=== PATIENT | female | born 1975 | race Caucasian/White ===

== ENCOUNTER 2019-04-26 09:38 | Inpatient (IN) | payer OTHER ==
[~2019-04-26] VITALS: Ht 160 cm; Wt 88.9 kg
[2019-04-26] MEDS ORDERED: ONDANSETRON HCL INJ 2MG/ML 2ML 2 MG/ML VIAL IV STA (09:52)
[2019-04-26] MEDS ORDERED: PANTOPRAZOLE 40 MG 10ML VIAL IV STA (09:52)
[2019-04-26] MEDS ORDERED: KETOROLAC TROMETHAMINE 30 MG/ML VIAL IV STA ×2 (09:52→18:12)
[2019-04-26] MEDS ORDERED: SODIUM CHLORIDE 0.9% 1000ML 1,000 ML IV STA (09:52)
[2019-04-26 10:07] LABS: BASOPHILS % 0.4 % (0.0-1.0); EOSINOPHILS % 0.5 % (0.0-6.0); HEMATOCRIT 39.4 % (34.2-44.1); HEMOGLOBIN 13.2 g/dL (12.0-16.0); LYMPHOCYTES # (AUTO) 1.6 (1.0-3.2); MEAN CORPUSCULAR HEMOGLOBIN 28.9 pg (28-32); MEAN CORPUSCULAR HGB CONC 33.5 g/dL (31-35); MEAN CORPUSCULAR VOLUME 86.2 fL (81-99); MONOCYTES # (AUTO) 0.6 (0.2-0.8); MONOCYTES % 7.9 % (4.4-11.3); NEUTROPHILS % 67.8 % (38.7-80.0); PLATELET COUNT 231 x10e3/uL (140-360); RED BLOOD COUNT 4.57 x10e6/uL (3.6-5.1); RED CELL DISTRIBUTION WIDTH 12.1 % (11.7-14.4)
[2019-04-26 10:08] LABS: BILIRUBIN,URINE NEGATIVE (NEGATIVE); CLARITY,URINE SL CLOUDY (CLEAR); COLOR,URINE YELLOW (YELLOW); KETONES,URINE TRACE (NEGATIVE); LEUKOCYTE ESTERASE ,URINE NEGATIVE (NEGATIVE); NITRITE,URINE NEGATIVE (NEGATIVE); PROTEIN,URINE DIPSTICK 2+ (NEGATIVE); URINE UROBILINOGEN 0.2 mg/dL (0.2 - 1)
[2019-04-26 10:14] LABS: INR 0.88; PROTHROMBIN TIME 12.4 seconds (11.9-14.5)
[2019-04-26 10:15] LABS: PARTIAL THROMBOPLASTIN TIME 28.2 seconds (23.8-35.5)
[2019-04-26 10:16] LABS: BACTERIA,URINE MANY /HPF; EPITHELIAL CELLS,URINE MODERATE /LPF; WBC,URINE (MAN) 21-50 /HPF (0-5)
[2019-04-26 10:17] LABS: AMORPHOUS SEDIMENT,URINE MODERATE (FEW)
[2019-04-26 10:21] LABS: ALANINE AMINOTRANSFERASE 21 IU/L (0-55); ALBUMIN 4.4 g/dL (3.5-5.0); ALBUMIN/GLOBULIN RATIO 1.4 (0.8-2.0); ALKALINE PHOSPHATASE 70 IU/L (40-150); AMYLASE 36 U/L (25-125); ANION GAP 13.2 mmol/L (8-16); BLOOD UREA NITROGEN 17 mg/dL (7-26); BUN/CREATININE RATIO 20 (6-25); CALCIUM 9.6 mg/dL (8.4-10.2); CARBON DIOXIDE 29 mmol/L (22-29); CHLORIDE 97 mmol/L (98-107); CREATININE, SERUM 0.85 mg/dL (0.57-1.11); EST GLOMERULAR FILTRATION RATE > 60 ML/MIN (60-); GLUCOSE 121 mg/dL (74-118); LIPASE 36 U/L (8-78); POTASSIUM 3.2 mmol/L (3.5-5.1); SODIUM 136 mmol/L (136-145)
[2019-04-26] MEDS ORDERED: CEFTRIAXONE SOD 1 GM/NS 50 ML 50 ML IV ONE (10:45)
--- NOTE | 2019-04-26 10:48 | Diagnostic Imaging Report ---
EXAM: CT Abdomen and Pelvis WITHOUT intravenous contrast INDICATION: Flank pain COMPARISON: None. TECHNIQUE: Abdomen and pelvis were scanned utilizing a multidetector helical scanner from the lung base to the pubic symphysis without administration of IV contrast. Coronal and sagittal reformations were obtained. IV CONTRAST: None ORAL CONTRAST: None COMPLICATIONS: None RADIATION DOSE: Total DLP: 731.8 mGy*cm Dose modulation, iterative reconstruction, and/or weight based adjustment of the mA/kV was utilized to reduce the radiation dose to as low as reasonably achievable. FINDINGS: LOWER THORAX: Normal. HEPATOBILIARY: No focal liver lesions. Status post cholecystectomy. SPLEEN: No splenomegaly. PANCREAS: No focal masses or ductal dilatation. ADRENALS: No adrenal nodules. KIDNEYS/URETERS: 4 mm proximal right ureteral calculus with mild resulting right hydroureteronephrosis. No other calculi. No left hydronephrosis. PELVIC ORGANS/BLADDER: Decompressed bladder. PERITONEUM / RETROPERITONEUM: No free air or fluid. LYMPH NODES: No lymphadenopathy. VESSELS: GI TRACT: Gastric lap band device in place. Mild colonic diverticulosis. No CT evidence of diverticulitis. No abnormal bowel wall thickening. No bowel obstruction. Normal appendix. BONES AND SOFT TISSUES: Unremarkable. IMPRESSION: 4 mm proximal right ureteral calculus with mild resulting right hydroureteronephrosis. No left hydronephrosis. No additional calculi. Signed by: Gerhard Osorio MD on 04/26/2019 10:44 AM
--- NOTE | 2019-04-26 10:58 | Diagnostic Imaging Report ---
EXAMINATION: CHEST SINGLE (PORTABLE) INDICATION: Abdominal pain COMPARISON: None FINDINGS: LINES/TUBES:None LUNGS:The lungs are well-inflated. No focal consolidation or pulmonary edema. PLEURA:No pleural effusion or pneumothorax. MEDIASTINUM:The cardiomediastinal silhouette appears normal in size and shape. Small hiatal hernia. BONES/SOFT TISSUES:No acute osseous injury. ABDOMEN:No free air under the diaphragm. IMPRESSION: No focal pneumonia or pulmonary edema. Small hiatal hernia. Signed by: Gerhard Osorio MD on 04/26/2019 10:55 AM
[2019-04-26 11:41] LABS: BILIRUBIN,URINE NEGATIVE (NEGATIVE); CLARITY,URINE SL CLOUDY (CLEAR); COLOR,URINE YELLOW (YELLOW); KETONES,URINE NEGATIVE (NEGATIVE); LEUKOCYTE ESTERASE ,URINE NEGATIVE (NEGATIVE); NITRITE,URINE NEGATIVE (NEGATIVE); PROTEIN,URINE DIPSTICK 1+ (NEGATIVE); URINE UROBILINOGEN 0.2 mg/dL (0.2 - 1)
[2019-04-26] MEDS ORDERED: POTASSIUM CHLORIDE 20 MEQ TAB CR PO STA (11:50)
[2019-04-26 11:54] LABS: AMORPHOUS SEDIMENT,URINE FEW (FEW); BACTERIA,URINE MANY /HPF; EPITHELIAL CELLS,URINE MODERATE /LPF; RBC,URINE >50 /HPF (0-5)
[2019-04-26] MEDS ORDERED: KCL 20MEQ/.9 SOD CHL 1,000 ML IV ONE (12:00)
[2019-04-26] MEDS ORDERED: MORPHINE SULFATE 2 MG/ML SYR 1ML IV PRN (12:15)
[2019-04-26] MEDS ORDERED: TAMSULOSIN HCL 0.4 MG CAP PO ONE (12:15)
[2019-04-26] MEDS ORDERED: MORPHINE SULFATE INJ 4 MG/ML INJ 1ML IV PRN (12:30)
--- OUTSIDE RECORDS SUMMARY | 2019-04-26 12:36 | XMS REPORT ---
Author Author [facility] Address Unknown Phone Unavailable Care Team Providers Care Cargo Service Agent Name Role Phone Gloria SLAUGHTER Unavailable Unavailable Problems This patient has no known problems. Allergies, Adverse Reactions, Alerts This patient has no known allergies or adverse reactions. Medications This patient has no known medications. Results Test Description Test Time Test Comments Text Results Atomic Results Result Comments CHEST SINGLE (PORTABLE) 2019-04-26 10:54:00 [facility] [address] [place] [address] Patient Name: BENITEZ MARIO MR #: [id number] : 1975 Age/Sex: 43/F Req #: [id number] [facility] Physician: Ordered by: MERCY SLAUGHTER MD Report #: [id number] Location: ER Room/Bed: Procedure: [id number] DX/CHEST SINGLE (PORTABLE) Exam Date: 04/26/19 Exam Time: 1030 REPORT STATUS: Signed EXAMINATION: CHEST SINGLE (PORTABLE) INDIC ATION: Abdominal pain COMPARISON: None FINDINGS: LINES/TUBES:None LUNGS:The lungs are well-inflated. No focal consolidation or pulmonary edema. PLEURA:No pleural effusion or pneumothorax. MEDIASTINUM:The cardiomediastinal silhouette appears normal in size and shape. Small hiatal hernia. BONES/SOFT TISSUES:No acute osseous injury. ABDOMEN:No free air under the diaphragm. IMPRESSION: No focal pneumonia or pulmonary edema. Small hiatal hernia. Signed by: Nikko Ferreira MD on 04/26/2019 10:55 AM Dictated By: NIKKO FERREIRA MD 105 Transcribed By: NAUN on 04/26/19 105 COPY TO: MERCY SLAUGHTER MD CT ABDOMEN/PELVIS WO 2019-04-26 10:38:00 [place] [address] Patient Name: BENITEZ MARIO MR #: [id number] : 1975 Age/Sex: 43/F Req #: [id number] Adm Physician: Ordered by: MERCY SLAUGHTER MD Report #: [id number] Location: ER Room/Bed: Procedure: [id number] CT/CT ABDOMEN/PELVIS WO Exam Date: 04/26/19 Exam Time: 1011 REPORT STATUS: Signed EXAM: CT Abdomen and Pelvis WITHOUT intravenous contras t INDICATION: Flank pain COMPARISON: None. TECHNIQUE: Abdomen and pelvis were scanned utilizing a multidetector helical scanner from the lung base to the pubic symphysis without administration of IV contrast. Coronal and sagittal reformations were obtained. IV CONTRAST: None ORAL CONTRAST: None COMPLICATIONS: None RADIATION DOSE: Total DLP: 731.8 mGy*cm Dose modulation, iterative reconstruction, and/or weight based adjustment of the mA/kV was utilized to reduce the radiation dose to as low as reasonably achievable. FINDINGS: LOWER THORAX: Normal. HEPATOBILIARY: No focal liver lesions. Status post cholecystectomy. SPLEEN: No splenomegaly. PANCREAS: No focal masses or ductal dilatation. ADRENALS: No adrenal nodules. KIDNEYS/URETERS: 4 mm proximal right ureteral calculus with mild resulting right hydroureteronephrosis. No other calculi. No left hydronephrosis. PELVIC ORGANS/BLADDER: Decompressed bladder. PERITONEUM / RETROPERITONEUM: No free air or fluid. LYMPH NODES: No lymphadenopathy. VESSELS: GI TRACT: Gastric lap band device in place. Mild colonic diverticulosis. No CT evidence of diverticulitis. No abnormal bowel wall thickening. No bowel obstruction. Normal appendix. BONES AND SOFT TISSUES: Unremarkable. IMPRESSION: 4 mm proximal right ureteral calculus with mild resulting right hydroureteronephrosis. No left hydronephrosis. No additional calculi. Signed by: Nikko Ferreira MD on 04/26/2019 10:44 AM Dictated By: NIKKO FERREIRA MD 1044 Transcribed By: NAUN on 04/26/19 1044 COPY TO: MERCY SLAUGHTER MD SCR MAMM BILATERAL DANIEL CAD DIGITAL 2019-01-25 11:31:41 - SCR MAMM BILATERAL DANIEL CAD DIGITALBILATERAL DIGITAL SCREENING MAMMOGRAM 3D/2D WITH CAD: 01/25/2019CLINICAL: Asymptomatic. Digital breast tomosynthesis was performed in addition to routine CC and MLO views. Current mammographic images were evaluated by either a American Board of Addiction Medicine (ABAM) M-Vu or a Signature ImageChecker CAD (computer aided detection system). No prior exams were available for comparison. There are sca ttered fibroglandular tissues in both breasts. No suspicious mass, architectural distortion, malignant type calcification, or lymph node abnormality detected. IMPRESSION: NEGATIVEThere is no mammographic evidence of malignancy. Resume annual screening mammography in one year. Cliff Vasquez M.D. ss/penrad:01/25/2019 11:31:41 Commercial Painter: Ashley HAWK, [facility]-FWletter sent: BIRADS 1-2 Normal Mammogram BI-RADS: 1 Negative
--- NOTE | 2019-04-26 12:39 | NUR ---
DR ALEX AT PT BEDSIDE
[2019-04-26] MEDS ORDERED: BYSTOLIC10 MG PO (13:08)
[2019-04-26] MEDS ORDERED: TRIAMTERENE-HCTZ1 EA PO (13:08)
--- NOTE | 2019-04-26 14:03 | NUR ---
PT PLACED IN HOSP BED
[2019-04-26] MEDS: ONDANSETRON HCL INJ 2MG/ML 2ML 2 MG/ML VIAL IV PRN ×2 (14:04→21:38)
[2019-04-26] MEDS ORDERED: HYDROMORPHONE 1MG/1ML INJ IV PRN (14:45)
--- NOTE | 2019-04-26 17:36 | NUR ---
Recvd patient from ER. AAOx3, assisted her to bed, denies any chest pain or SOB, Not in any distress, mild tenderness on abdomen, resp even and unlabored, call light in reach
[2019-04-26 17:42] VITALS: BP 130/80
[2019-04-26 18:21] VITALS: BP 138/90
--- NOTE | 2019-04-26 19:00 | NUR ---
RECEIVED REPORT FROM DAY NURSE. PATIENT IS RESTING COMFORTABLY IN BED. BED IS IN LOWEST POSITION AND CALL ANGEL IS WITHIN REACH. WILL CONTINUE TO MONITOR PATIENT.
[2019-04-26 20:00] VITALS: BP 133/81
[2019-04-26] MEDS: SODIUM CHLORIDE 0.9% 1000ML 1,000 ML IV SCH (21:04)
[2019-04-26] MEDS: TAMSULOSIN HCL 0.4 MG CAP PO SCH (21:11)
[2019-04-26] MEDS: NEBIVOLOL 10 MG TAB PO SCH (21:11)
--- NOTE | 2019-04-26 21:19 | Consultation ---
DATE OF CONSULTATION: 04/26/2019 Urologic consultation Consultation is called by Dr. Ben Santiago in the emergency room. CHIEF COMPLAINT/REASON FOR CONSULTATION: Right ureteral calculus. 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 She denied fevers or chills. Denied hematuria. Denied dysuria. PAST MEDICAL HISTORY: Denied. MEDICATIONS: Please see MAR. ALLERGIES: NKDA. SOCIAL HISTORY: Denied smoking or drinking. FAMILY HISTORY: Denied urologic stones or malignancies. REVIEW OF SYSTEMS: Noncontributory other than problems mentioned above for 12 organ systems. PHYSICAL EXAMINATION: GENERAL: Middle-aged female, in no acute distress. VITAL SIGNS: Currently, temperature 98, pulse 70, respirations 16, blood pressure 161/96. HEENT: Sclerae are anicteric. NECK: Supple. BACK: Right-sided costovertebral angle tenderness. ABDOMEN: Soft, nontender, and nondistended. No palpable mass. No palpable hernias. No palpable lymphadenopathy. : Normal female external genitalia. EXTREMITIES: No edema. Moves all four extremities. PSYCH: Alert and mood appropriate. SKIN: Intact. Normal color. PERTINENT LABORATORY DATA: CT scan revealing right 4 mm proximal ureteral calculus with hydronephrosis. Hemoglobin 13, hematocrit 39, platelet count 231,000, and white cell count 7300. Sodium 136, potassium 3.2, chloride 97, bicarb 29, BUN 17, creatinine 0.5, and glucose 121. Urinalysis greater than 50 reds and 11-20 whites. IMPRESSION: 1. Right ureteral calculus. 2. Right hydronephrosis. 3. Right renal colic. 4. Microscopic hematuria. 5. Hypertension. 6. Hypokalemia. PLAN: We would employ a brief trial of passage of medical expulsive therapy. Should this fail, we will discuss lithotripsy versus ureteroscopy in stepwise per the patient. Thank you for allowing me to participate in the care of your patient. We will be happy to follow along with you. MD OLGA Kauffman/MODL /[id number] cc: MD Roseanne Kauffman MD Laird A Sweet, MD
[2019-04-26] MEDS: HYDROMORPHONE 1MG/1ML INJ IV PRN (21:38)
[2019-04-26] MEDS: CEFTRIAXONE SOD 1 GM/NS 50 ML 50 ML IV SCH (22:58)
[2019-04-27] VITALS (7 sets, daily range): BP systolic 94–150; BP diastolic 51–71
[2019-04-27] MEDS: KETOROLAC TROMETHAMINE 30 MG/ML VIAL IV PRN ×4 (00:58→18:32)
--- NOTE | 2019-04-27 01:45 | History and Physical ---
CHIEF COMPLAINT: Right kidney stone associated with hydroureteronephrosis. HISTORY: The patient is a pleasant 43-year-old female with no history of previous stone, came in with right flank severe pain. CT stone protocol showed 4 mm proximal right ureteral calculus with mild resulting in right hydroureteronephrosis. The patient is in severe pain. She did receive some pain medication. The patient is otherwise stable at this time. Urinalysis shows significant urinary tract infection with many bacteria. PAST MEDICAL HISTORY: Hypertension. PAST SURGICAL HISTORY: Hysterectomy, cholecystectomy, and hiatal hernia repair. SOCIAL HISTORY: The patient does not smoke or use alcohol. No recreational drug use. The patient works here at [employer]. ALLERGIES: NO KNOWN ALLERGIES. HOME MEDICATIONS: List is reviewed. REVIEW OF SYSTEMS: As mentioned above. PHYSICAL EXAMINATION: VITAL SIGNS: Temperature is 98, blood pressure 161/96, pulse rate is 70, respirations 18. GENERAL: The patient is not in acute distress. She is awake. HEENT: Normocephalic, atraumatic. Sclera anicteric. NECK: Supple grossly. PULMONARY: Diminished breath sounds. CARDIOVASCULAR: S1 and S2. Regular rate and rhythm. ABDOMEN: Soft. Right flank tenderness. EXTREMITIES: No cyanosis or edema. NEUROLOGIC: No gross focal deficit. IMAGING: Showed a 4 mm right obstructed kidney stone. IMPRESSION: 1. Right 4 mm obstructive kidney stone associated with hydroureteronephrosis. 2. Urinary tract infection. 3. Intractable pain. PLAN: Continue with IV fluids. Replace PPI. Toradol and hydromorphone p.r.n. We will monitor the patient closely. The patient is stable. We will continue with antibiotics. Obtain lab work in the morning. The patient is seen by Dr. Bj Perez for possible stone management and stent placement if not passing the stone. MD DESI Mendiola/ACE /[id number]
[2019-04-27 05:44] LABS: BASOPHILS % 0.3 % (0.0-1.0); EOSINOPHILS # (AUTO) 0.1 (0.0-0.4); EOSINOPHILS % 1.4 % (0.0-6.0); HEMATOCRIT 35.4 % (34.2-44.1); HEMOGLOBIN 11.5 g/dL (12.0-16.0); LYMPHOCYTES # (AUTO) 2.1 (1.0-3.2); LYMPHOCYTES % 32.7 % (18.0-39.1); MEAN CORPUSCULAR HGB CONC 32.5 g/dL (31-35); MEAN CORPUSCULAR VOLUME 89.4 fL (81-99); MONOCYTES # (AUTO) 0.5 (0.2-0.8); MONOCYTES % 8.1 % (4.4-11.3); NEUTROPHILS # (AUTO) 3.6 (2.1-6.9); NEUTROPHILS % 57.2 % (38.7-80.0); PLATELET COUNT 176 x10e3/uL (140-360); RED BLOOD COUNT 3.96 x10e6/uL (3.6-5.1); RED CELL DISTRIBUTION WIDTH 12.2 % (11.7-14.4)
[2019-04-27] MEDS: ONDANSETRON HCL INJ 2MG/ML 2ML 2 MG/ML VIAL IV PRN ×3 (05:49→21:00)
[2019-04-27] MEDS: SODIUM CHLORIDE 0.9% 1000ML 1,000 ML IV SCH ×3 (05:49→21:07)
[2019-04-27] MEDS: HYDROMORPHONE 1MG/1ML INJ IV PRN ×4 (05:49→21:00)
[2019-04-27 06:09] LABS: ALANINE AMINOTRANSFERASE 18 IU/L (0-55); ALBUMIN 3.6 g/dL (3.5-5.0); ALBUMIN/GLOBULIN RATIO 1.3 (0.8-2.0); ALKALINE PHOSPHATASE 57 IU/L (40-150); ANION GAP 11.4 mmol/L (8-16); BLOOD UREA NITROGEN 15 mg/dL (7-26); BUN/CREATININE RATIO 20 (6-25); CALCIUM 8.5 mg/dL (8.4-10.2); CARBON DIOXIDE 25 mmol/L (22-29); CHLORIDE 106 mmol/L (98-107); CREATININE, SERUM 0.75 mg/dL (0.57-1.11); EST GLOMERULAR FILTRATION RATE > 60 ML/MIN (60-); GLUCOSE 124 mg/dL (74-118); POTASSIUM 3.4 mmol/L (3.5-5.1); SODIUM 139 mmol/L (136-145)
--- NOTE | 2019-04-27 06:41 | NUR ---
report given to day nurse. patient is resting comfortably in bed. bed is in lowest position and call sage is within reach.
[2019-04-27] MEDS: PANTOPRAZOLE 40 MG 10ML VIAL IV SCH (08:54)
[2019-04-27] MEDS ORDERED: NEBIVOLOL 10 MG TAB PO SCH (09:00)
[2019-04-27] MEDS: CEFTRIAXONE SOD 1 GM/NS 50 ML 50 ML IV SCH ×2 (10:30→22:47)
--- NOTE | 2019-04-27 15:01 | Diagnostic Imaging Report ---
Exam: KUB - 2 views Clinical History: Renal calculi Comparison: CT abdomen and pelvis of 04/26/2019 Findings: 5 mm calcific density to the right of the L4 vertebral body corresponds with the right ureteral calculus seen on the CT of 04/26/2019. No other radiographically apparent urinary calculi. Nonobstructive bowel gas pattern. No free air. Flat band partially visualized. Status post cholecystectomy. The osseous structures appear unremarkable. Impression: 5 mm calcific density to the right of the L4 vertebral body corresponds with the right ureteral calculus seen on the CT of 04/26/2019. Signed by: Gerhard Osorio MD on 04/27/2019 2:58 PM
--- NOTE | 2019-04-27 15:05 | NUR ---
Visit made by the Spiritual Care Department Pastoral Visitor, Kimmie Nunez. PV provided pastoral presence, prayer, hospitality, and supportive listening. Pastoral Visitor informed pt/family of the scope of Forest Ranger Technician Services and availability. JOE MARTIN Socially Responsible Investment Adviser Spiritual Care Department O: [phone] Pager: [phone] ([phone] number calling from)
--- NOTE | 2019-04-27 19:00 | NUR ---
received report from day nurse. patient is resting comfortably in bed. bed is in lowest position and call sage is within reach. will continue to monitor patient.
[2019-04-27] MEDS: TAMSULOSIN HCL 0.4 MG CAP PO SCH (21:07)
[2019-04-27] MEDS: NEBIVOLOL 10 MG TAB PO SCH (21:07)
[2019-04-28] VITALS (8 sets, daily range): BP systolic 115–141; BP diastolic 20–66
[2019-04-28] MEDS: KETOROLAC TROMETHAMINE 30 MG/ML VIAL IV PRN ×3 (00:39→17:31)
[2019-04-28] MEDS: HYDROMORPHONE 1MG/1ML INJ IV PRN ×2 (05:51→23:22)
[2019-04-28] MEDS: ONDANSETRON HCL INJ 2MG/ML 2ML 2 MG/ML VIAL IV PRN ×2 (05:51→23:22)
--- NOTE | 2019-04-28 07:10 | NUR ---
RCD PT AT BED PT IS ALERT AND ORIENTED PT RESTING ON BED NO SIGNS OF ANY DISTRESS NOTED IV PATENT BED LOW AND LOCKED CALL LIGHT IN REACH
[2019-04-28] MEDS: PANTOPRAZOLE 40 MG 10ML VIAL IV SCH (09:00)
[2019-04-28] MEDS: SODIUM CHLORIDE 0.9% 1000ML 1,000 ML IV SCH ×3 (09:07→20:37)
[2019-04-28] MEDS: CEFTRIAXONE SOD 1 GM/NS 50 ML 50 ML IV SCH ×2 (11:00→23:22)
[2019-04-28] MEDS ORDERED: IOPAMIDOL 610MG/1ML 300 MG/ML VIAL IV ONE (11:47)
[2019-04-28] MEDS ORDERED: FENTANYL CITRATE/PF 100MCG/2 ML INJ ONE ×2 (15:17→15:35)
[2019-04-28] MEDS ORDERED: MIDAZOLAM HCL 2 MG/2 ML VIAL ONE (15:17)
[2019-04-28] MEDS ORDERED: METOCLOPRAMIDE HCL 10 MG/2ML VIAL ONE (15:36)
[2019-04-28] MEDS ORDERED: ONDANSETRON HCL INJ 2MG/ML 2ML 2 MG/ML VIAL ONE (15:36)
--- NOTE | 2019-04-28 16:05 | NUR ---
PATIENT BACK AFTER PROCEDURE PT IS ALERT AND ORIENTED VITALS CHECKED PT RESTING ON BED NO SIGNS OF DISTRESS NOTED BED LOW AND LOCKED CALL LIGHT IN REACH
--- NOTE | 2019-04-28 17:00 | NUR ---
PT VOIDED AFTER SURGERY
--- NOTE | 2019-04-28 19:09 | NUR ---
PT RESTING ON BED BED SIDE REPORT GIVEN TO ONCOMING NURSE
--- NOTE | 2019-04-28 19:09 | NUR ---
PT RESTING ON BED BED SIDE REPORT GIVEN TO ONCOMING NURSE
[2019-04-28] MEDS: NEBIVOLOL 10 MG TAB PO SCH (20:37)
[2019-04-28] MEDS: TAMSULOSIN HCL 0.4 MG CAP PO SCH (20:37)
[2019-04-29] VITALS (9 sets, daily range): BP systolic 120–161; BP diastolic 62–83
--- NOTE | 2019-04-29 00:04 | Operative Report ---
DATE OF PROCEDURE: 04/28/2019 SURGEON: Bj Perez MD PREOPERATIVE DIAGNOSIS: Right ureteral calculi. POSTOPERATIVE DIAGNOSIS: Right ureteral calculi. PROCEDURES: 1. Staged right-sided shock wave lithotripsy. 2. Supervision of fluoroscopy. ANESTHESIA: General. ESTIMATED BLOOD LOSS: Minimal. COMPLICATIONS: None. INDICATIONS: Ms. Jaimes is a very pleasant 43-year-old female with acute onset of sharp severe right-sided flank pain, who was found to have a 5 mm right mid ureteral calculus. She and I had a long discussion about alternatives, risks, and benefits of doing nothing, shock wave lithotripsy, ureteroscopy, percutaneous surgery or open surgery, and recommendation for stent. She voiced explicit understanding of this. She elected to proceed with shock wave lithotripsy. She declined stent placement. She voiced understanding options of the alternatives, risks, and benefits and elected to proceed. PROCEDURE IN DETAIL: After informed consent was obtained, the patient was taken to operative suite, placed supine on the operating table, and underwent general anesthesia by Anesthesia service. The stone was localized in the X, Y, and Z planes. Treatment was performed per treatment report. The patient tolerated the procedure well and was transported to the recovery room in excellent condition. Supervision of fluoroscopy: I was present for the entire procedure and supervised fluoroscopy. There was no radiologist present. Dosage per treatment report. Bj Perez MD ES/MODL /[id number]
[2019-04-29] MEDS: SODIUM CHLORIDE 0.9% 1000ML 1,000 ML IV SCH ×2 (04:13→09:30)
[2019-04-29] MEDS: ONDANSETRON HCL INJ 2MG/ML 2ML 2 MG/ML VIAL IV PRN (04:13)
[2019-04-29] MEDS: HYDROMORPHONE 1MG/1ML INJ IV PRN ×2 (04:13→11:45)
--- NOTE | 2019-04-29 07:05 | NUR ---
RCD PT AT BED PT IS ALERT AND ORIENTED PT RESTING ON BED PT C/O PAIN ON RIGHT FLANK 11/22 IV PATENT BED LOW AND LOCKED CALL LIGHT IN REACH
[2019-04-29] MEDS: KETOROLAC TROMETHAMINE 30 MG/ML VIAL IV PRN (08:56)
[2019-04-29] MEDS: PANTOPRAZOLE 40 MG 10ML VIAL IV SCH (09:00)
--- NOTE | 2019-04-29 10:18 | Diagnostic Imaging Report ---
Abdomen, 1 view. History: Ureteral stone. Comparison: 04/27/2019. Findings: 5 mm calcific density is again seen close to the right L5 transverse processes. Air is scattered throughout nondilated small and large bowel. There are no masses. The osseous structures are intact. Cholecystectomy clips and gastric lap band are again noted. IMPRESSION: Small right ureteral stone slightly more inferior located. Signed by: Byron Lawson on 04/29/2019 10:15 AM
[2019-04-29 10:42] LABS: BASOPHILS % 0.2 % (0.0-1.0); EOSINOPHILS % 0.5 % (0.0-6.0); HEMATOCRIT 34.5 % (34.2-44.1); HEMOGLOBIN 11.4 g/dL (12.0-16.0); LYMPHOCYTES % 23.3 % (18.0-39.1); MEAN CORPUSCULAR HEMOGLOBIN 29.2 pg (28-32); MEAN CORPUSCULAR VOLUME 88.2 fL (81-99); MONOCYTES # (AUTO) 0.7 (0.2-0.8); MONOCYTES % 7.5 % (4.4-11.3); NEUTROPHILS # (AUTO) 5.9 (2.1-6.9); NEUTROPHILS % 68.2 % (38.7-80.0); PLATELET COUNT 175 x10e3/uL (140-360); RED BLOOD COUNT 3.91 x10e6/uL (3.6-5.1)
[2019-04-29 10:59] LABS: ANION GAP 12.3 mmol/L (8-16); BLOOD UREA NITROGEN 10 mg/dL (7-26); BUN/CREATININE RATIO 11 (6-25); CALCIUM 8.8 mg/dL (8.4-10.2); CARBON DIOXIDE 28 mmol/L (22-29); CHLORIDE 100 mmol/L (98-107); CREATININE, SERUM 0.88 mg/dL (0.57-1.11); EST GLOMERULAR FILTRATION RATE > 60 ML/MIN (60-); GLUCOSE 108 mg/dL (74-118); POTASSIUM 3.3 mmol/L (3.5-5.1); SODIUM 137 mmol/L (136-145)
[2019-04-29] MEDS: CEFTRIAXONE SOD 1 GM/NS 50 ML 50 ML IV SCH ×2 (11:00→23:00)
--- NOTE | 2019-04-29 11:25 | NUR ---
PAGED DR HENSON AND NOTIFIED THE KUB REPORT HE SAID TELL THE PT IF THE STONE IS COMING DOWN TODAY PT NEED ANOTHER STENT PLACEMENT ON TOMORROW KEEP THE PT NPO AFTER MIDNIGHT ,NOTIFIED THE PT
[2019-04-29] MEDS ORDERED: DEXAMETHASONE SOD PHOS INJ 4 MG/ML VIAL ONE (14:31)
[2019-04-29] MEDS ORDERED: PROPOFOL IV EMULSION 10 MG/ML 20 ML VIAL ONE (14:31)
[2019-04-29] MEDS ORDERED: ONDANSETRON HCL INJ 2MG/ML 2ML 2 MG/ML VIAL ONE (14:31)
[2019-04-29] MEDS ORDERED: LIDOCAINE HCL 2% LOCAL INJ 5 ML SDV VIAL INJ ONE (14:31)
[2019-04-29] MEDS ORDERED: SEVOFLURANE INHAL SOLN 250 ML PEN BTL ONE (14:31)
--- NOTE | 2019-04-29 18:50 | NUR ---
PT RESTING ON BED BED SIDE REPORT GIVEN TO ONCOMING NURSE
[2019-04-29] MEDS: NEBIVOLOL 10 MG TAB PO SCH (20:41)
[2019-04-29] MEDS: TAMSULOSIN HCL 0.4 MG CAP PO SCH (20:41)
[2019-04-29] MEDS ORDERED: ACETAMINOPHEN 325 MG TAB PO PRN (22:00)
[2019-04-30 04:00] VITALS: BP 130/62
[2019-04-30] MEDS: SODIUM CHLORIDE 0.9% 1000ML 1,000 ML IV SCH (06:10)
--- NOTE | 2019-04-30 07:55 | NUR ---
Dr. Perez here to see pt this morning and received orders from that pt is to have STAT KUB to r/o renal stone. Dr. Berman wants to be called with results of KUB. Pt is ambulating in hallway. Denies any pain at this time.
[2019-04-30 08:00] VITALS: BP 172/94
[2019-04-30 08:24] VITALS: BP 195/80
[2019-04-30] MEDS: PANTOPRAZOLE 40 MG 10ML VIAL IV SCH (08:33)
--- NOTE | 2019-04-30 08:44 | Diagnostic Imaging Report ---
Abdomen, 1 view. History: Right kidney stone. Findings: The 5 mm stone previously seen in the adjacent to the right L5 transverse process is not visible on today's exam. A small calcific density is seen projected over the right aspect of the bladder. Air is scattered throughout nondilated small and large bowel. There are no masses. The osseous structures are intact. IMPRESSION: Right ureteral stone no longer visible, possibly passed to the bladder or UV junction. Signed by: Byron Lawson on 04/30/2019 8:40 AM
[2019-04-30] MEDS ORDERED: KEFLEX500 MG PO (10:07)
[2019-04-30] MEDS ORDERED: CELEBREX100 MG PO (10:08)
--- NOTE | 2019-04-30 10:14 | NUR ---
Dr. Perez called with KUB results and states that pt is ok to discharge home from his standpoint. Dr. Barksdale here to see pt and he spoke with Dr. Perez as well. Discharge orders have been placed for discharge home.
[2019-04-30] MEDS ORDERED: POTASSIUM CHLORIDE 10MEQ EA PO ONE (10:30)
--- NOTE | 2019-05-01 06:07 | Discharge Summary ---
PCP: Roseanne Her MD SACK MAKER: Bj Perez MD FINAL DIAGNOSES: 1. Complicated urinary tract infection with Escherichia coli secondary to obstructive kidney stone. 2. A 4-mm proximal right ureteral stone with right hydroureteronephrosis. The patient is now status post stone management with shockwave lithotripsy. 3. Renal colic, resolved. The patient did pass a kidney stone today. Repeated KUB show right ureteral stone, no longer visible, passed through the bladder. HOSPITAL COURSE: In summary, the patient is a 43 years female with acute kidney stone, associated renal colic, severe pain, admitted to the hospital. The patient has obstructive stone. She also has E coli and urinary tract infection. The patient has been getting Rocephin antibiotic and she responded well with the infection. However, the stone persists, did not pass. The patient subsequently underwent EWSL and the patient had a small stone residual, but now she passed the stone. The patient's pain has now resolved. The patient is stable. She will be discharged home today. She is to complete the course of antibiotics with Keflex 500 mg three times a day for seven days and Celebrex 1 mg q.12 hours as needed for pain. The patient to follow up with Dr. Perez as an outpatient. The patient to follow up with family physician on routine visit or sooner if needed. The patient is stable. The patient will resume home medication. Her potassium was slightly low and that has been replaced. MD DESI Mendiola/ACE /[id number]
== END 2019-04-30 10:41 | disposition home or self-care (01) | DRG 669 ==
LOC: ER 09:38 → ERHOLD 11:50 → MED/SURG2 17:37
PROVIDERS: ADMIT Internal Medicine; ATTEND Internal Medicine
PROC: 0TC68ZZ Extirpation of Matter from Right Ureter, Via Natural or Artificial Opening Endoscopic (ICD-10-PCS; principal; 2019-04-28 15:00)
DX: N13.6 Pyonephrosis (principal); N20.2 Calculus of kidney with calculus of ureter; N39.0 Urinary tract infection, site not specified; I10 Essential (primary) hypertension; E87.6 Hypokalemia; N23 Unspecified renal colic; B96.20 Unspecified Escherichia coli [E. coli] as the cause of diseases classified elsewhere; Z16.12 Extended spectrum beta lactamase (ESBL) resistance
CPT/HCPCS: 36415; 50590; 71045; 74018; 74176; 80048; 80053; 81001; 82150; 83690; 85025; 85610; 85730; 87086; 87186; 99284; J0696; J1100; J1170; J1885; J2001; J2250; J2270; J2405; J2765; J3010; J7030

== ENCOUNTER → 2019-09-10 | Outpatient (CLI) | payer OTHER ==
[~2019-09-10] MED LIST: BYSTOLIC10 MG PO; CELEBREX100 MG PO; KEFLEX500 MG PO; TRIAMTERENE-HCTZ1 EA PO
[2019-09-10 15:49] LABS: BILIRUBIN,URINE NEGATIVE (NEGATIVE); CLARITY,URINE SL CLOUDY (CLEAR); COLOR,URINE YELLOW (YELLOW); KETONES,URINE NEGATIVE (NEGATIVE); LEUKOCYTE ESTERASE ,URINE NEGATIVE (NEGATIVE); NITRITE,URINE NEGATIVE (NEGATIVE); PROTEIN,URINE DIPSTICK NEGATIVE (NEGATIVE); URINE UROBILINOGEN 0.2 mg/dL (0.2 - 1)
[2019-09-10 16:19] LABS: BACTERIA,URINE RARE /HPF; EPITHELIAL CELLS,URINE RARE /LPF; RBC,URINE 21-50 /HPF (0-5)
== END ==
LOC: LAB 15:14
PROVIDERS: ATTEND Urology
DX: N39.0 Urinary tract infection, site not specified (principal)
CPT/HCPCS: 81001; 87086

== ENCOUNTER → 2020-09-20 | Outpatient (CLI) | payer OTHER ==
[~2020-09-20] MED LIST changes: +COVID-19 VACC, MRNA(MODERNA)/PF 100 MCG/0.5 ML VIAL IM ONE
== END ==
LOC: VACCPMC 07:00
DX: Z23 Encounter for immunization (principal); Z20.822 Contact with and (suspected) exposure to COVID-19

== ENCOUNTER → 2020-10-02 | Outpatient (CLI) | payer OTHER ==
[~2020-10-02] MED LIST changes: -COVID-19 VACC, MRNA(MODERNA)/PF 100 MCG/0.5 ML VIAL IM ONE
== END ==
LOC: VACCPMC 15:55
DX: C23 Malignant neoplasm of gallbladder (principal); Z20.828 Contact with and (suspected) exposure to other viral communicable diseases

== ENCOUNTER 2022-12-06 07:00 | Outpatient (RCR) | payer BC | END 2022-12-13 23:59 | disposition home or self-care (01) | LOC: PT 07:00 | PROVIDERS: ATTEND Physician Assistant | DX: S82.492A Other fracture of shaft of left fibula, initial encounter for closed fracture (principal) ==

== ENCOUNTER 2023-01-09 07:00 | Outpatient (RCR) | payer BC | END 2023-01-12 | LOC: PT 07:00 | PROVIDERS: ATTEND Physician Assistant | DX: S82.832D Other fracture of upper and lower end of left fibula, subsequent encounter for closed fracture with routine healing (principal); S93.602D Unspecified sprain of left foot, subsequent encounter ==

== ENCOUNTER 2023-01-13 07:03 | Outpatient (RCR) | payer BC | END 2023-02-12 | LOC: PT 07:03 | PROVIDERS: ATTEND Physician Assistant | DX: S82.832D Other fracture of upper and lower end of left fibula, subsequent encounter for closed fracture with routine healing (principal); S93.602D Unspecified sprain of left foot, subsequent encounter ==

== ENCOUNTER → 2023-03-06 | Outpatient (CLI) | payer BC | LOC: DX 10:55 | PROVIDERS: ATTEND Family Medicine | DX: M85.88 Other specified disorders of bone density and structure, other site (principal) | CPT/HCPCS: 77080 ==

== ENCOUNTER 2024-06-15 10:58 | Emergency (ER) | payer BC | END 2024-06-15 14:01 | disposition short-term general hospital (02) | LOC: ER 11:56 | DX: Z04.1 Encounter for examination and observation following transport accident (principal) ==